=== PATIENT | male | born 1960 | race Caucasian/White ===

== ENCOUNTER 2020-11-01 06:31 | Day surgery (SDC) | payer OTHER ==
[2020-10-26 11:46] LABS: BASOPHILS # (AUTO) 0.1 X10'3 (0-0.2); BASOPHILS % (AUTO) 0.6 % (0-1); EOSINOPHILS # (AUTO) 0.2 X10'3 (0-0.9); LYMPHOCYTES # (AUTO) 2.2 X10'3 (1.1-4.8); LYMPHOCYTES % (AUTO) 19.9 % (21-51); MEAN CORPUSCULAR HEMOGLOBIN 30.4 PG (27.0-31.0); MEAN CORPUSCULAR HGB CONC 33.3 g/dL (33.0-36.5); MEAN CORPUSCULAR VOLUME 91.2 FL (78-98); MEAN PLATELET VOLUME 7.7 FL (7.4-10.4); MONOCYTES # (AUTO) 0.7 X10'3 (0-0.9); MONOCYTES % (AUTO) 6.3 % (2-12); NEUTROPHILS # (AUTO) 7.7 X10'3 (1.8-7.7); NEUTROPHILS % (AUTO) 71.2 % (42-75); PRE OP HEMATOCRIT 39.8 % (42.0-52.0); PRE OP HEMOGLOBIN 13.3 g/dL (14.0-17.9); PRE OP PLATELET COUNT 343 X10'3 (140-440); RED BLOOD COUNT 4.37 X10'6 (4.70-6.10); RED CELL DISTRIBUTION WIDTH 13.3 % (11.5-14.5)
[2020-10-26 11:56] LABS: ALBUMIN 3.8 G/DL (3.4-5.0); ALKALINE PHOSPHATASE 63 IU/L (46-116); BLOOD UREA NITROGEN 30 MG/DL (7-18); BUN/CREATININE RATIO 25.2 (5.4-32.0); CHLORIDE 104 MMOL/L (99-107); CREATININE 1.19 MG/DL (0.60-1.10); PRE OP ALT 20 U/L (30-65); PRE OP ANION GAP 9 (8-16); PRE OP AST 17 U/L (10-37); PRE OP BILIRUB, TOTAL 0.6 MG/DL (0.0-1.0); PRE OP GLUCOSE 82 MG/DL (70-104); PRE OP POTASSIUM 4.2 MMOL/L (3.4-5.1); PRE OP SODIUM 143 MMOL/L (135-145); TOTAL CARBON DIOXIDE 30.3 MMOL/L (24-32); TOTAL PROTEIN 7.6 G/DL (6.4-8.2); eGFR 62 ML/MIN
[~2020-11-01] VITALS: Ht 165.1 cm; Wt 95.3 kg
[2020-11-01] VITALS (14 sets, daily range): BP systolic 113–153; BP diastolic 67–90
[~2020-11-01 06:31] MED LIST: ATOR10TA87 PO; LISI20TA28 PO; METF500T PO; cefazolin/dext.iso 2gm/100ml IV ONE; famotidine 20mg tablet PO ONE; ringers solution, lacted 1,000 ML IV SCH
[2020-11-01] MEDS ORDERED: LIDOcaine 1% 30ml preserv. free vial ONE (07:02)
[2020-11-01] MEDS ORDERED: BUPIVAcaine/PF 2.5 mg/ml (0.25%) 30ml vial ONE (07:02)
[2020-11-01] MEDS ORDERED: BUPIVAcaine/PF 2.5mg/ml (0.25%) 10ml vial ONE (07:02)
[2020-11-01] MEDS ORDERED: BUPIVACAINE liposomal/PF 13.3 MG/ML vial IM ONE (07:03)
[2020-11-01] MEDS ORDERED: morphine 4 MG/ML inj SYRINge IV PRN (08:15)
[2020-11-01] MEDS ORDERED: ringers solution, lacted 1,000 ML IV SCH (08:15)
[2020-11-01] MEDS ORDERED: labetalol 20mg/4ml (5mg/ml) syringe IV PRN (08:15)
[2020-11-01] MEDS ORDERED: morphine 2 MG/ML inj. syringe IV PRN (08:15)
[2020-11-01] MEDS ORDERED: hydrALAZINE 20mg/ml inj. IV PRN (08:15)
[2020-11-01] MEDS ORDERED: ondansetron/PF 4mg/2ml inj IV PRN (08:15)
[2020-11-01] MEDS ORDERED: fentaNYL/PF 50MCG/1 ML 2ML syringe IV PRN ×2 (08:15)
[2020-11-01] MEDS ORDERED: fentaNYL/PF 50MCG/1 ML 2ML syringe ONE (08:19)
[2020-11-01] MEDS ORDERED: midazolam 1 mg/ML 2ml injection ONE (08:19)
[2020-11-01] MEDS ORDERED: neostigmine methylsulfate 1 MG/ML 10ml vial ONE (08:20)
[2020-11-01] MEDS ORDERED: propofol inj 20 ML IV ONE (08:20)
[2020-11-01] MEDS ORDERED: rocuronium 10mg/ml inj IV ONE (08:20)
[2020-11-01] MEDS ORDERED: dexamethasone sod phosphate 4mg/ml inj. ONE (08:20)
[2020-11-01] MEDS ORDERED: LIDOcaine 2% (20mg/ml) 5ml vial ONE (08:20)
[2020-11-01] MEDS ORDERED: ondansetron/PF 4mg/2ml inj ONE (08:20)
[2020-11-01] MEDS ORDERED: glycopyrrolate 0.2mg/ml inj ONE (08:20)
[2020-11-01] MEDS ORDERED: sevoflurane 250ml liquid IH ONE (08:25)
[2020-11-01] MEDS ORDERED: ePHEDrine 50MG/ML INJ. ONE (08:48)
--- NOTE | 2020-11-01 09:55 | NUR ---
Received from OR via [facility], accompanied by Anesthesiologist DR STARKS and report given by Anesthesiologist. PT VERY DROWSY, NO S/S OF DISTRESS/DISCOMFORT. ABDOMEN W/3 LAP SITES W/BANDAIDS CDI, 1 [facility] DRS CDI. Addendum: 11/01/20 at 1035 by Stephanie Gary RN Amended: Links added.
[2020-11-01] MEDS ORDERED: oxyCODONE/APAP 5-325mg tablet PO PRN ×2 (10:05)
[2020-11-01] MEDS ORDERED: LIDOcaine 2% 10ml TOPICAL JELLY (Urojet) MM ONE (12:35)
--- NOTE | 2020-11-01 13:32 | NUR ---
PT UP AND ATTEMPTED TO VOID X 2, UNABLE TO VOID, BLADDER SCANNED FOR 370 ML, ORDERS RECEIVED TO STRAIGHT CATH PT. STRAIGHT CATH W/STERILE TECHNIQUE, 500 ML LIGHT YELLOW URINE RETURN. PT TOLERATED WELL. PT STABLE W/AMBULATION, PAIN TOLERABLE. PT D/CD TO HOME VIA W/C TO PRIVATE VEHICLE W/O INCIDENT. Addendum: 11/01/20 at 1400 by Stephanie Gary RN Amended: Links added.
== END 2020-11-01 13:35 | disposition home or self-care (01) ==
LOC: PAS 06:31
PROVIDERS: ATTEND Surgery
DX: K42.0 Umbilical hernia with obstruction, without gangrene (principal); I10 Essential (primary) hypertension; E11.9 Type 2 diabetes mellitus without complications; E66.9 Obesity, unspecified; Z68.35 Body mass index [BMI] 35.0-35.9, adult; Z87.891 Personal history of nicotine dependence; Z98.41 Cataract extraction status, right eye; Z98.42 Cataract extraction status, left eye; Z98.890 Other specified postprocedural states; Z79.899 Other long term (current) drug therapy; Z79.84 Long term (current) use of oral hypoglycemic drugs; Z91.030 Bee allergy status
CPT/HCPCS: 36415; 49653; 64488; 80053; 82948; 85025; 93005; C1781; C9290; J1100; J2001; J2250; J2405; J2704; J2710; J3010; J3490; A4215; A4618; J7120